=== PATIENT | male | born 1955 | race Two or more races ===

== ENCOUNTER → 2020-08-10 | Outpatient (CLI) | payer OTHER | END | disposition home or self-care (01) | LOC: Rad HDHVI 08:06 | PROVIDERS: ATTEND Internal Medicine Cardiovascular Disease | DX: I11.0 Hypertensive heart disease with heart failure (principal); I50.43 Acute on chronic combined systolic (congestive) and diastolic (congestive) heart failure | CPT/HCPCS: 93306 ==

== ENCOUNTER → 2020-08-17 | Outpatient (CLI) | payer OTHER ==
[~2020-08-17] MED LIST: AMIODARONE HCL 200 MG TAB ONE; AMIODARONE HCL 200 MG TAB PO ONE; FUROSEMIDE 40 MG/4 ML VIAL IV ONE; FUROSEMIDE 40 MG/4 ML VIAL ONE; POTASSIUM CHL 20 Meq TABLET PO ONE
--- NOTE | 2020-08-17 09:10 | NUR ---
PT. BROUGHT TO [facility] [place] [facility] [place] [facility] DEPT[facility] AFTER UNABLE TO COMPLETE STRESS TEST DUE TO SEVERE ORTHOPNEA. PT. AOX4, PWD. EKG DONE IN STRESS LAB SHOWS NEW ONSET A-FIB WITH RVR AT 125-140BPM. B/P. 97/65, O2 IN PLACE AT 3L/NC HL, RT AC, FLUSHED WITH 10CC NSS, SITE BENIGN. ORDERS RECEIVED AND CARRIED OUT.
--- NOTE | 2020-08-17 09:30 | NUR ---
LABS DRAWN AND SENT PER MD ORDER. PT. CHANGED TO SITTING AND STANDING POSITION FOR RESP. COMFORT SATS 98% ON 3L/NC.
--- NOTE | 2020-08-17 09:45 | NUR ---
PT. TO AND FROM XRAY VIA AMBULATION. 97/69, 119-126, 24
--- NOTE | 2020-08-17 10:00 | NUR ---
NEW T.O. RECEIVED FROM DR. KAPLAN WHO WILL BE COMING TO SEE PT.
[2020-08-17 10:11] LABS: BUN/Creatinine Ratio 10.9; Calcium 8.2 mg/dL (8.5-10.1); Magnesium 2.5 mg/dL (1.6-2.6)
--- NOTE | 2020-08-17 10:13 | NUR ---
PT. TOOK HIS OWN DOSE OF XARELTO 20MG PO PER MD ORDER.
[2020-08-17 10:17] LABS: Basophils # (auto) 0.1 10 ^3/uL (0-0.2); Eosinophils # (auto) 0.2 10 ^3/uL (0-0.8); Eosinophils % (auto) 1.7 % (0.0-7.0); Hemoglobin 14.2 g/dL (13.5-17.5); Lymphocytes % (auto) 11.5 % (10.0-50.0); Mean Corpuscular Hemoglobin 31.6 pg (28.0-32.0); Mean Corpuscular Hgb Conc. 33.7 g/dL (32.0-36.0); Mean Corpuscular Volume 93.9 fL (80.0-100.0); Monocytes # (auto) 0.6 10 ^3/uL (0-1.3); Monocytes % (auto) 6.6 % (0.0-12.0); Neutrophils # (auto) 7.1 10 ^3/uL (1.6-8.6); Neutrophils % (auto) 79.2 % (37.0-80.0); Platelet Count (auto) 194 10^3/uL (140-450); Red Blood Cells 4.48 10^6/uL (4.5-5.90); Red Cell Distribution Width 13.7 % (11.8-14.3)
--- NOTE | 2020-08-17 10:50 | NUR ---
MEDS: AMIODARONE 400MG PO GIVEN PER MD ORDER. 114/77, 113-119, 22, 98% ON 3L
--- NOTE | 2020-08-17 11:45 | NUR ---
104/66, 114-116, 22, 99% ON 3L. PT'S HAS BEEN UPDATED ON PT. STATUS AND MD EXAM.PT. WITH NO C/O AT THIS TIME.
--- NOTE | 2020-08-17 12:30 | NUR ---
PT. TO AND FROM DR. KAPLAN' OFFICE FOR EXAM. NEW ORDERS RECEIVED AND CARRIED OUT.
--- NOTE | 2020-08-17 12:55 | NUR ---
MEDS: LASIX 40MG SIVP GIVEN
--- NOTE | 2020-08-17 12:57 | NUR ---
MEDS: PT. MEDICATED WITH KDUR 20 MEQ PO PER MD ORDER.
--- NOTE | 2020-08-17 13:15 | NUR ---
IV removal IV DC'd with sterile technique, catheter fully intact. Pressure dressing applied to site. Patient tolerated procedure well. Discharged with aftercare instructions per MD. NOTE: NEW RX'S CALLED TO [facility]. FOR XARELTO 20MG, AMIODARONE 400MG BID, DIGOXIN 0.125 PO Q HS, LASIX 20MG PO DAILY AND KDUR 10 MEQ PO DAILY. PT. INSTRUCTED TO HOLD HIS PROCARDIA PER MD INSTRUCTIONS.
--- NOTE | 2020-08-17 13:20 | NUR ---
Discharge Instructions See e-MAR for any mediations given with this visit. Patient education given on disease process. Patient verbalized understanding. Previous labs reviewed. Patient discharged in stable condition with after care instructions and follow up appointment. PT. TO HAVE FOLLOW UP APPT ON 08/[address] KAPLAN.
[2020-08-17 15:49] VITALS: BP 106/59
== END | disposition home or self-care (01) ==
LOC: Rad HDHVI 08:05
PROVIDERS: ATTEND Internal Medicine Cardiovascular Disease
DX: I70.0 Atherosclerosis of aorta (principal); R09.89 Other specified symptoms and signs involving the circulatory and respiratory systems; M47.814 Spondylosis without myelopathy or radiculopathy, thoracic region; J90 Pleural effusion, not elsewhere classified; M25.78 Osteophyte, vertebrae; I11.0 Hypertensive heart disease with heart failure; I50.23 Acute on chronic systolic (congestive) heart failure; R06.02 Shortness of breath; E66.9 Obesity, unspecified; I48.91 Unspecified atrial fibrillation
CPT/HCPCS: 36415; 71046; 80048; 83735; 83880; 85025; 93005; 96374; G0463; J1940

== ENCOUNTER → 2020-09-08 | Outpatient (CLI) | payer OTHER ==
[~2020-09-08] MED LIST changes: +AMIO200T33 PO; -AMIODARONE HCL 200 MG TAB ONE; -AMIODARONE HCL 200 MG TAB PO ONE; +DIGO0.12 PO; +FINA5TAB4 PO; +FURO1TAB33 PO; -FUROSEMIDE 40 MG/4 ML VIAL IV ONE; -FUROSEMIDE 40 MG/4 ML VIAL ONE; +LISI40TA11 PO; -POTASSIUM CHL 20 Meq TABLET PO ONE; +RIVA20TA PO; +TAMS0.4C36 PO
[2020-09-08 09:22] VITALS: BP 131/83
[2020-09-08 09:48] VITALS: BP 128/81
--- NOTE | 2020-09-08 09:48 | NUR ---
Pre-Op Discharge Summary: See e-MAR for any medications given for this visit. Pre-op orders received and carried out per MD of EKG, LABS and chest xrays. Patient given a copy of EKG with [facility] for further follow up care. PT. INSTRUCTED TO TAKE DIURETICS AND KDUR BID ON EVEN DAYS, AND REGULAR DOSE ON ODD DAYS UP UNTIL SCHEDULED PROCEDURE D/T INCREASING PERIPHERAL EDEMA AND SOB PER PT.
[2020-09-08 11:57] LABS: Basophils # (auto) 0.1 10 ^3/uL (0-0.2); Basophils % (auto) 1.1 % (0.0-2.0); Eosinophils # (auto) 0.2 10 ^3/uL (0-0.8); Eosinophils % (auto) 2.4 % (0.0-7.0); Hematocrit 41.4 % (41.0-53.0); Lymphocytes # (auto) 1.1 10 ^3/uL (0.4-5.4); Lymphocytes % (auto) 12.5 % (10.0-50.0); Mean Corpuscular Hemoglobin 31.7 pg (28.0-32.0); Mean Corpuscular Hgb Conc. 33.7 g/dL (32.0-36.0); Mean Corpuscular Volume 93.9 fL (80.0-100.0); Monocytes # (auto) 0.5 10 ^3/uL (0-1.3); Monocytes % (auto) 5.7 % (0.0-12.0); Neutrophils # (auto) 6.7 10 ^3/uL (1.6-8.6); Neutrophils % (auto) 78.3 % (37.0-80.0); Nucleated Red Blood Cells % 0.1 %; Platelet Count (auto) 229 10^3/uL (140-450); Red Blood Cells 4.41 10^6/uL (4.5-5.90); Red Cell Distribution Width 14.4 % (11.8-14.3); White Blood Cell 8.6 10^3/uL (4.4-10.8)
[2020-09-08 12:13] LABS: Calcium 8.5 mg/dL (8.5-10.1); Potassium 3.8 mmol/L (3.5-5.1)
[2020-09-08 12:16] LABS: BUN/Creatinine Ratio 8.9; Magnesium 2.6 mg/dL (1.6-2.6)
[2020-09-08 12:23] LABS: INR 1.34 (0.9-1.15); Partial Thromboplastin Time 36.5 sec (23.0-31.2)
== END | disposition home or self-care (01) ==
LOC: Rad HDHVI 09:12
PROVIDERS: ATTEND Internal Medicine Cardiovascular Disease
DX: Z01.812 Encounter for preprocedural laboratory examination (principal); J98.11 Atelectasis; J90 Pleural effusion, not elsewhere classified; I51.7 Cardiomegaly; R09.89 Other specified symptoms and signs involving the circulatory and respiratory systems; J81.1 Chronic pulmonary edema; I70.0 Atherosclerosis of aorta
CPT/HCPCS: 36415; 71046; 80048; 83735; 85025; 85610; 85730; G0463

== ENCOUNTER 2020-09-14 10:43 | Inpatient (IN) | payer OTHER ==
[~2020-09-14] VITALS: Ht 167.6 cm; Wt 118.0 kg
[2020-09-14] MEDS ORDERED: IOHEXOL 350 MG/ML 100ML IJ ONE (12:14)
[2020-09-14] MEDS ORDERED: LIDOCAINE 2%HCL (LOCAL ANESTH.) INJ 20ML MDV ONE (12:14)
[2020-09-14] MEDS ORDERED: fentaNYL CITRATE 100 MCG/2 ML VL ONE (12:43)
[2020-09-14] MEDS ORDERED: SODIUM CHL 0.9% 50 ML ONE ×2 (12:43→13:41)
[2020-09-14] MEDS ORDERED: MIDAZOLAM HCL 1MG/1ML-2 ML VIAL ONE (12:43)
[2020-09-14] MEDS ORDERED: ANGIOMAX 250 MG VIAL IV ONE ×2 (12:43→13:41)
[2020-09-14] MEDS ORDERED: FUROSEMIDE 20 MG/2 ML VIAL ONE (13:03)
[2020-09-14] MEDS ORDERED: NITROGLYCERIN 0.4MG/DOSE SPRAY 4.9GM ONE (13:12)
[2020-09-14] MEDS ORDERED: CLOPIDOGREL 300 MG TAB ONE (13:47)
[2020-09-14] MEDS ORDERED: MORPHINE SULF INJ 2 MG/ML SYRINGE 1ML IV PRN (14:30)
[2020-09-14] MEDS ORDERED: ONDANSETRON HCL 4 MG/2 ML VIAL IV PRN (14:30)
[2020-09-14] MEDS ORDERED: LISINOPRIL 20 MG TAB PO PRN (14:30)
[2020-09-14] MEDS ORDERED: ACETAMINOPHEN 500 MG TAB PO PRN (14:30)
[2020-09-14] MEDS ORDERED: NITROGLYCERIN 0.4 MG SL TAB SL PRN (14:30)
[2020-09-14] MEDS: HYDROcodone-ACET 5/325MG TAB PO PRN (16:15)
[2020-09-14 17:45] VITALS: BP 102/74
[2020-09-14] MEDS ORDERED: TAMSULOSIN HYDROCHLORIDE 0.4 MG CAP PO SCH (18:00)
[2020-09-14 18:45] VITALS: BP 101/61
[2020-09-14 19:45] VITALS: BP_SYST 110; BP_SYST 98; BP_DIAS 62; BP_DIAS 68
[2020-09-14] MEDS: AMIODARONE HCL 200 MG TAB PO SCH (22:36)
[2020-09-15 00:27] VITALS: BP 110/62
[2020-09-15 05:32] VITALS: BP 102/70
[2020-09-15 07:58] LABS: Potassium 3.9 mmol/L (3.5-5.1)
[2020-09-15 08:00] VITALS: BP_SYST 94; BP_SYST 96; BP_DIAS 61; BP_DIAS 67
[2020-09-15] MEDS: HYDROcodone-ACET 5/325MG TAB PO PRN (08:02)
[2020-09-15 08:03] LABS: BUN/Creatinine Ratio 10.3; Calcium 8.4 mg/dL (8.5-10.1)
[2020-09-15] MEDS ORDERED: LISINOPRIL 20 MG TAB PO SCH (10:00)
[2020-09-15] MEDS: AMIODARONE HCL 200 MG TAB PO SCH (10:00)
[2020-09-15] MEDS ORDERED: FUROSEMIDE 20 MG TAB PO SCH (10:00)
[2020-09-15] MEDS ORDERED: FINASTERIDE 5 MG TAB PO SCH (10:00)
[2020-09-15] MEDS ORDERED: CLOPIDOGREL BISULFATE 75 MG TAB PO SCH (10:00)
[2020-09-15] MEDS ORDERED: DIGOXIN 0.125 MG TAB PO SCH (10:00)
[2020-09-15 12:00] VITALS: BP 88/59
[2020-09-15 14:38] VITALS: BP 88/59
[2020-09-15] MEDS ORDERED: RIVAROXABAN 20 MG TAB PO SCH (18:00)
== END 2020-09-15 15:40 | disposition home or self-care (01) | DRG 246 ==
LOC: CATH 10:43 → TELE 10:44 → TELE-WESTW 16:48
PROVIDERS: ADMIT Internal Medicine Cardiovascular Disease; ATTEND Internal Medicine Cardiovascular Disease
PROC: 027037Z Dilation of Coronary Artery, One Artery with Four or More Drug-eluting Intraluminal Devices, Percutaneous Approach (ICD-10-PCS; principal; 2020-09-14)
PROC: 4A023N8 Measurement of Cardiac Sampling and Pressure, Bilateral, Percutaneous Approach (ICD-10-PCS; 2020-09-14)
PROC: B2151ZZ Fluoroscopy of Left Heart using Low Osmolar Contrast (ICD-10-PCS; 2020-09-14)
PROC: B2111ZZ Fluoroscopy of Multiple Coronary Arteries using Low Osmolar Contrast (ICD-10-PCS; 2020-09-14)
DX: I11.0 Hypertensive heart disease with heart failure (principal); I50.21 Acute systolic (congestive) heart failure; Z68.41 Body mass index [BMI] 40.0-44.9, adult; I25.10 Atherosclerotic heart disease of native coronary artery without angina pectoris; I25.5 Ischemic cardiomyopathy; E66.01 Morbid (severe) obesity due to excess calories; E11.9 Type 2 diabetes mellitus without complications; Z20.828 Contact with and (suspected) exposure to other viral communicable diseases
CPT/HCPCS: 36415; 36600; 80048; 82805; 99152; 99153; C1751; C1874; C1887; G0378; J2250

== ENCOUNTER → 2020-10-11 | Outpatient (CLI) | payer OTHER ==
[2020-10-11 09:49] VITALS: BP 142/94
[2020-10-11 10:27] VITALS: BP 124/80
== END | disposition home or self-care (01) ==
LOC: Rad HDHVI 08:11
PROVIDERS: ATTEND Internal Medicine Cardiovascular Disease
DX: I25.118 Atherosclerotic heart disease of native coronary artery with other forms of angina pectoris (principal); I11.0 Hypertensive heart disease with heart failure; I50.23 Acute on chronic systolic (congestive) heart failure; R60.9 Edema, unspecified; I73.9 Peripheral vascular disease, unspecified; E11.9 Type 2 diabetes mellitus without complications; I42.0 Dilated cardiomyopathy; R06.02 Shortness of breath; R09.89 Other specified symptoms and signs involving the circulatory and respiratory systems
CPT/HCPCS: 93306; G0166

== ENCOUNTER → 2020-10-12 | Outpatient (CLI) | payer OTHER ==
[2020-10-12 14:40] VITALS: BP 129/95
[2020-10-12 15:16] VITALS: BP 108/75
== END | disposition home or self-care (01) ==
LOC: CHF HDHVI 14:07
PROVIDERS: ATTEND Internal Medicine Cardiovascular Disease
DX: I25.118 Atherosclerotic heart disease of native coronary artery with other forms of angina pectoris (principal); I11.0 Hypertensive heart disease with heart failure; I50.23 Acute on chronic systolic (congestive) heart failure; I73.9 Peripheral vascular disease, unspecified; R60.9 Edema, unspecified; E11.9 Type 2 diabetes mellitus without complications; R09.89 Other specified symptoms and signs involving the circulatory and respiratory systems; I42.0 Dilated cardiomyopathy; R06.02 Shortness of breath
CPT/HCPCS: G0166

== ENCOUNTER → 2020-10-18 | Outpatient (CLI) | payer OTHER ==
[2020-10-18 14:38] VITALS: BP 135/94
[2020-10-18 15:10] VITALS: BP 129/81
== END | disposition home or self-care (01) ==
LOC: CHF HDHVI 14:09
PROVIDERS: ATTEND Internal Medicine Cardiovascular Disease
DX: I25.118 Atherosclerotic heart disease of native coronary artery with other forms of angina pectoris (principal); I11.0 Hypertensive heart disease with heart failure; I50.23 Acute on chronic systolic (congestive) heart failure; R06.02 Shortness of breath; E11.9 Type 2 diabetes mellitus without complications; R09.89 Other specified symptoms and signs involving the circulatory and respiratory systems; I42.0 Dilated cardiomyopathy; I73.9 Peripheral vascular disease, unspecified; R60.9 Edema, unspecified; Z98.61 Coronary angioplasty status
CPT/HCPCS: G0166

== ENCOUNTER → 2020-10-19 | Outpatient (CLI) | payer OTHER ==
[2020-10-19 14:34] VITALS: BP 128/94
[2020-10-19 15:09] VITALS: BP 130/79
== END | disposition home or self-care (01) ==
LOC: CHF HDHVI 13:56
PROVIDERS: ATTEND Internal Medicine Cardiovascular Disease
DX: I25.118 Atherosclerotic heart disease of native coronary artery with other forms of angina pectoris (principal); I11.0 Hypertensive heart disease with heart failure; I50.23 Acute on chronic systolic (congestive) heart failure; E11.9 Type 2 diabetes mellitus without complications; R06.02 Shortness of breath; I73.9 Peripheral vascular disease, unspecified; I42.0 Dilated cardiomyopathy; R09.89 Other specified symptoms and signs involving the circulatory and respiratory systems; R60.9 Edema, unspecified; Z98.61 Coronary angioplasty status
CPT/HCPCS: G0166

== ENCOUNTER → 2020-10-20 | Outpatient (CLI) | payer OTHER ==
[2020-10-20 14:28] VITALS: BP 141/85
[2020-10-20 15:01] VITALS: BP 124/74
== END | disposition home or self-care (01) ==
LOC: CHF HDHVI 13:56
PROVIDERS: ATTEND Internal Medicine Cardiovascular Disease
DX: I25.118 Atherosclerotic heart disease of native coronary artery with other forms of angina pectoris (principal); I11.0 Hypertensive heart disease with heart failure; I50.23 Acute on chronic systolic (congestive) heart failure; I73.9 Peripheral vascular disease, unspecified; I42.0 Dilated cardiomyopathy; R06.02 Shortness of breath; E11.9 Type 2 diabetes mellitus without complications; R09.89 Other specified symptoms and signs involving the circulatory and respiratory systems; R60.9 Edema, unspecified
CPT/HCPCS: G0166

== ENCOUNTER → 2020-10-26 | Outpatient (CLI) | payer OTHER ==
[2020-10-26 14:28] VITALS: BP 140/86
[2020-10-26 15:01] VITALS: BP 120/69
== END | disposition home or self-care (01) ==
LOC: CHF HDHVI 13:57
PROVIDERS: ATTEND Internal Medicine Cardiovascular Disease
DX: I25.118 Atherosclerotic heart disease of native coronary artery with other forms of angina pectoris (principal); I11.0 Hypertensive heart disease with heart failure; I50.23 Acute on chronic systolic (congestive) heart failure; E11.9 Type 2 diabetes mellitus without complications; I73.9 Peripheral vascular disease, unspecified; R06.02 Shortness of breath; I42.0 Dilated cardiomyopathy; R60.9 Edema, unspecified
CPT/HCPCS: G0166

== ENCOUNTER → 2020-10-27 | Outpatient (CLI) | payer OTHER ==
[2020-10-27 14:30] VITALS: BP 139/79
[2020-10-27 15:05] VITALS: BP 126/77
== END | disposition home or self-care (01) ==
LOC: CHF HDHVI 13:56
PROVIDERS: ATTEND Internal Medicine Cardiovascular Disease
DX: I25.118 Atherosclerotic heart disease of native coronary artery with other forms of angina pectoris (principal); I11.0 Hypertensive heart disease with heart failure; I50.23 Acute on chronic systolic (congestive) heart failure; I42.0 Dilated cardiomyopathy; I73.9 Peripheral vascular disease, unspecified; R06.02 Shortness of breath; R60.9 Edema, unspecified; E11.9 Type 2 diabetes mellitus without complications; R09.89 Other specified symptoms and signs involving the circulatory and respiratory systems
CPT/HCPCS: G0166

== ENCOUNTER → 2020-10-28 | Outpatient (CLI) | payer OTHER ==
[2020-10-28 09:51] VITALS: BP 133/79
[2020-10-28 10:24] VITALS: BP 132/76
== END | disposition home or self-care (01) ==
LOC: CHF HDHVI 09:13
PROVIDERS: ATTEND Internal Medicine Cardiovascular Disease
DX: I25.118 Atherosclerotic heart disease of native coronary artery with other forms of angina pectoris (principal); I11.0 Hypertensive heart disease with heart failure; I50.23 Acute on chronic systolic (congestive) heart failure; R60.9 Edema, unspecified; R06.02 Shortness of breath; I73.9 Peripheral vascular disease, unspecified; E11.9 Type 2 diabetes mellitus without complications; I42.0 Dilated cardiomyopathy; R09.89 Other specified symptoms and signs involving the circulatory and respiratory systems; Z98.61 Coronary angioplasty status
CPT/HCPCS: G0166

== ENCOUNTER → 2020-11-04 | Outpatient (CLI) | payer OTHER ==
[2020-11-04 14:31] VITALS: BP 133/83
[2020-11-04 15:04] VITALS: BP 134/84
== END | disposition home or self-care (01) ==
LOC: CHF HDHVI 14:00
PROVIDERS: ATTEND Internal Medicine Cardiovascular Disease
DX: I25.118 Atherosclerotic heart disease of native coronary artery with other forms of angina pectoris (principal); I11.0 Hypertensive heart disease with heart failure; I50.23 Acute on chronic systolic (congestive) heart failure; E11.9 Type 2 diabetes mellitus without complications; R06.02 Shortness of breath; I42.0 Dilated cardiomyopathy; Z98.61 Coronary angioplasty status
CPT/HCPCS: G0166

== ENCOUNTER → 2020-11-05 | Outpatient (CLI) | payer OTHER ==
[2020-11-05 14:30] VITALS: BP 132/83
[2020-11-05 15:22] VITALS: BP 129/71
== END | disposition home or self-care (01) ==
LOC: CHF HDHVI 13:59
PROVIDERS: ATTEND Internal Medicine Cardiovascular Disease
DX: I25.118 Atherosclerotic heart disease of native coronary artery with other forms of angina pectoris (principal); I11.0 Hypertensive heart disease with heart failure; I50.23 Acute on chronic systolic (congestive) heart failure; I73.9 Peripheral vascular disease, unspecified; I42.0 Dilated cardiomyopathy; E11.9 Type 2 diabetes mellitus without complications; R06.02 Shortness of breath; Z98.61 Coronary angioplasty status
CPT/HCPCS: G0166

== ENCOUNTER → 2020-11-08 | Outpatient (CLI) | payer OTHER ==
[2020-11-08 14:39] VITALS: BP 113/75
[2020-11-08 15:07] VITALS: BP 123/78
== END | disposition home or self-care (01) ==
LOC: CHF HDHVI 14:07
PROVIDERS: ATTEND Internal Medicine Cardiovascular Disease
DX: I25.118 Atherosclerotic heart disease of native coronary artery with other forms of angina pectoris (principal); I11.0 Hypertensive heart disease with heart failure; I50.23 Acute on chronic systolic (congestive) heart failure; I42.0 Dilated cardiomyopathy; I73.9 Peripheral vascular disease, unspecified; E11.9 Type 2 diabetes mellitus without complications; R06.02 Shortness of breath; R09.89 Other specified symptoms and signs involving the circulatory and respiratory systems; R60.9 Edema, unspecified
CPT/HCPCS: G0166

== ENCOUNTER → 2020-11-09 | Outpatient (CLI) | payer OTHER ==
[~2020-11-09] MED LIST changes: +ALBUAER3 INH; +ATOR20TA50 PO; +CLOP75TA70 PO; +POTA-180 PO
[2020-11-09 14:31] VITALS: BP 159/96
[2020-11-09 15:14] VITALS: BP 132/76
== END | disposition home or self-care (01) ==
LOC: CHF HDHVI 13:52
PROVIDERS: ATTEND Internal Medicine Cardiovascular Disease
DX: I25.118 Atherosclerotic heart disease of native coronary artery with other forms of angina pectoris (principal); I11.0 Hypertensive heart disease with heart failure; I50.23 Acute on chronic systolic (congestive) heart failure; E11.9 Type 2 diabetes mellitus without complications; R06.02 Shortness of breath; I73.9 Peripheral vascular disease, unspecified; Z98.61 Coronary angioplasty status
CPT/HCPCS: G0166

== ENCOUNTER → 2020-11-15 | Outpatient (CLI) | payer OTHER ==
[~2020-11-15] MED LIST changes: -ALBUAER3 INH; -ATOR20TA50 PO; -CLOP75TA70 PO; -POTA-180 PO
[2020-11-15 14:31] VITALS: BP 157/89
[2020-11-15 15:22] VITALS: BP 126/72
== END | disposition home or self-care (01) ==
LOC: CHF HDHVI 13:56
PROVIDERS: ATTEND Internal Medicine Cardiovascular Disease
DX: I25.118 Atherosclerotic heart disease of native coronary artery with other forms of angina pectoris (principal); I11.0 Hypertensive heart disease with heart failure; I50.23 Acute on chronic systolic (congestive) heart failure; E11.9 Type 2 diabetes mellitus without complications; R06.02 Shortness of breath; I42.0 Dilated cardiomyopathy; I73.9 Peripheral vascular disease, unspecified; Z98.61 Coronary angioplasty status
CPT/HCPCS: G0166

== ENCOUNTER → 2020-11-16 | Outpatient (CLI) | payer OTHER ==
[2020-11-16 14:45] VITALS: BP 129/79
[2020-11-16 15:14] VITALS: BP 124/72
== END | disposition home or self-care (01) ==
LOC: CHF HDHVI 14:13
PROVIDERS: ATTEND Internal Medicine Cardiovascular Disease
DX: I25.118 Atherosclerotic heart disease of native coronary artery with other forms of angina pectoris (principal); I11.0 Hypertensive heart disease with heart failure; I50.23 Acute on chronic systolic (congestive) heart failure; E11.9 Type 2 diabetes mellitus without complications; R06.02 Shortness of breath; I73.9 Peripheral vascular disease, unspecified; Z98.61 Coronary angioplasty status
CPT/HCPCS: G0166

== ENCOUNTER → 2020-11-17 | Outpatient (CLI) | payer OTHER ==
[2020-11-17 14:32] VITALS: BP 128/76
[2020-11-17 15:06] VITALS: BP 114/65
== END | disposition home or self-care (01) ==
LOC: CHF HDHVI 14:00
PROVIDERS: ATTEND Internal Medicine Cardiovascular Disease
DX: I25.118 Atherosclerotic heart disease of native coronary artery with other forms of angina pectoris (principal); I11.0 Hypertensive heart disease with heart failure; I50.23 Acute on chronic systolic (congestive) heart failure; I73.9 Peripheral vascular disease, unspecified; I42.0 Dilated cardiomyopathy; R06.02 Shortness of breath; E11.9 Type 2 diabetes mellitus without complications; Z98.61 Coronary angioplasty status
CPT/HCPCS: G0166

== ENCOUNTER → 2020-11-24 | Outpatient (CLI) | payer OTHER ==
[2020-11-24 14:45] VITALS: BP 141/81
[2020-11-24 15:17] VITALS: BP 127/77
== END | disposition home or self-care (01) ==
LOC: CHF HDHVI 14:12
PROVIDERS: ATTEND Internal Medicine Cardiovascular Disease
DX: I25.118 Atherosclerotic heart disease of native coronary artery with other forms of angina pectoris (principal); I11.0 Hypertensive heart disease with heart failure; I50.23 Acute on chronic systolic (congestive) heart failure; I73.9 Peripheral vascular disease, unspecified; E11.9 Type 2 diabetes mellitus without complications; R06.02 Shortness of breath; R60.9 Edema, unspecified; R09.89 Other specified symptoms and signs involving the circulatory and respiratory systems; I42.0 Dilated cardiomyopathy
CPT/HCPCS: G0166

== ENCOUNTER → 2020-11-25 | Outpatient (CLI) | payer OTHER ==
[2020-11-25 14:28] VITALS: BP 144/82
[2020-11-25 15:05] VITALS: BP 119/70
== END | disposition home or self-care (01) ==
LOC: CHF HDHVI 14:14
PROVIDERS: ATTEND Internal Medicine Cardiovascular Disease
DX: I25.118 Atherosclerotic heart disease of native coronary artery with other forms of angina pectoris (principal); I11.0 Hypertensive heart disease with heart failure; I50.23 Acute on chronic systolic (congestive) heart failure; R06.02 Shortness of breath; I73.9 Peripheral vascular disease, unspecified; I42.0 Dilated cardiomyopathy; E11.9 Type 2 diabetes mellitus without complications; Z98.61 Coronary angioplasty status
CPT/HCPCS: G0166

== ENCOUNTER → 2020-11-26 | Outpatient (CLI) | payer OTHER ==
[2020-11-26 14:31] VITALS: BP 156/89
[2020-11-26 15:07] VITALS: BP 131/75
== END | disposition home or self-care (01) ==
LOC: CHF HDHVI 13:52
PROVIDERS: ATTEND Internal Medicine Cardiovascular Disease
DX: I25.118 Atherosclerotic heart disease of native coronary artery with other forms of angina pectoris (principal); I11.0 Hypertensive heart disease with heart failure; I50.23 Acute on chronic systolic (congestive) heart failure; R06.02 Shortness of breath; E11.9 Type 2 diabetes mellitus without complications; I42.0 Dilated cardiomyopathy; Z98.61 Coronary angioplasty status
CPT/HCPCS: G0166

== ENCOUNTER → 2020-11-29 | Outpatient (CLI) | payer OTHER ==
[2020-11-29 14:34] VITALS: BP 143/89
[2020-11-29 15:07] VITALS: BP 127/75
== END | disposition home or self-care (01) ==
LOC: CHF HDHVI 14:12
PROVIDERS: ATTEND Internal Medicine Cardiovascular Disease
DX: I25.118 Atherosclerotic heart disease of native coronary artery with other forms of angina pectoris (principal); I11.0 Hypertensive heart disease with heart failure; I50.23 Acute on chronic systolic (congestive) heart failure; I73.9 Peripheral vascular disease, unspecified; I42.0 Dilated cardiomyopathy; E11.9 Type 2 diabetes mellitus without complications; Z98.61 Coronary angioplasty status
CPT/HCPCS: G0166

== ENCOUNTER → 2020-12-01 | Outpatient (CLI) | payer OTHER ==
[2020-12-01 14:33] VITALS: BP 136/67
[2020-12-01 15:04] VITALS: BP 125/71
== END | disposition home or self-care (01) ==
LOC: CHF HDHVI 13:54
PROVIDERS: ATTEND Internal Medicine Cardiovascular Disease
DX: I25.118 Atherosclerotic heart disease of native coronary artery with other forms of angina pectoris (principal); I11.0 Hypertensive heart disease with heart failure; I50.23 Acute on chronic systolic (congestive) heart failure; I25.5 Ischemic cardiomyopathy; I42.0 Dilated cardiomyopathy; E11.9 Type 2 diabetes mellitus without complications; R06.02 Shortness of breath; Z98.61 Coronary angioplasty status
CPT/HCPCS: G0166

== ENCOUNTER → 2020-12-02 | Outpatient (CLI) | payer OTHER ==
[2020-12-02 15:22] VITALS: BP 136/79
[2020-12-02 15:31] VITALS: BP 127/75
== END | disposition home or self-care (01) ==
LOC: CHF HDHVI 14:22
PROVIDERS: ATTEND Internal Medicine Cardiovascular Disease
DX: I25.118 Atherosclerotic heart disease of native coronary artery with other forms of angina pectoris (principal); I11.0 Hypertensive heart disease with heart failure; I50.23 Acute on chronic systolic (congestive) heart failure; E11.9 Type 2 diabetes mellitus without complications; R06.02 Shortness of breath; I42.0 Dilated cardiomyopathy; I73.9 Peripheral vascular disease, unspecified; Z98.61 Coronary angioplasty status
CPT/HCPCS: G0166

== ENCOUNTER → 2020-12-08 | Outpatient (CLI) | payer OTHER ==
[2020-12-08 14:28] VITALS: BP 141/85
[2020-12-08 15:03] VITALS: BP 138/78
== END | disposition home or self-care (01) ==
LOC: CHF HDHVI 14:13
PROVIDERS: ATTEND Internal Medicine Cardiovascular Disease
DX: I25.118 Atherosclerotic heart disease of native coronary artery with other forms of angina pectoris (principal); I11.0 Hypertensive heart disease with heart failure; I50.23 Acute on chronic systolic (congestive) heart failure; I73.9 Peripheral vascular disease, unspecified; I42.0 Dilated cardiomyopathy; E11.9 Type 2 diabetes mellitus without complications; R60.9 Edema, unspecified; R06.02 Shortness of breath; R09.89 Other specified symptoms and signs involving the circulatory and respiratory systems
CPT/HCPCS: G0166

== ENCOUNTER → 2020-12-13 | Outpatient (CLI) | payer OTHER ==
[2020-12-13 14:30] VITALS: BP 136/77
[2020-12-13 15:04] VITALS: BP 123/68
== END | disposition home or self-care (01) ==
LOC: CHF HDHVI 14:05
PROVIDERS: ATTEND Internal Medicine Cardiovascular Disease
DX: I25.118 Atherosclerotic heart disease of native coronary artery with other forms of angina pectoris (principal); I11.0 Hypertensive heart disease with heart failure; I50.23 Acute on chronic systolic (congestive) heart failure; I73.9 Peripheral vascular disease, unspecified; I42.0 Dilated cardiomyopathy; E11.9 Type 2 diabetes mellitus without complications; R06.02 Shortness of breath; Z98.61 Coronary angioplasty status
CPT/HCPCS: G0166

== ENCOUNTER → 2020-12-22 | Outpatient (CLI) | payer OTHER | END | disposition home or self-care (01) | LOC: Rad HDHVI 13:50 | PROVIDERS: ATTEND Internal Medicine Cardiovascular Disease | DX: I25.5 Ischemic cardiomyopathy (principal); R06.02 Shortness of breath | CPT/HCPCS: 93306 ==

== ENCOUNTER → 2021-01-31 | Outpatient (CLI) | payer OTHER ==
[~2021-01-31] MED LIST changes: +ALBUAER3 INH; +ATOR20TA50 PO; +CLOP75TA70 PO; +POTA-180 PO
[2021-01-31 09:10] VITALS: BP 123/66
[2021-01-31 09:25] VITALS: BP 118/69
[2021-01-31 12:08] LABS: Basophils # (auto) 0 10 ^3/uL (0-0.2); Basophils % (auto) 0.5 % (0.0-2.0); Eosinophils # (auto) 0 10 ^3/uL (0-0.8); Eosinophils % (auto) 0.3 % (0.0-7.0); Hematocrit 36.6 % (41.0-53.0); Hemoglobin 12.3 g/dL (13.5-17.5); Lymphocytes # (auto) 0.5 10 ^3/uL (0.4-5.4); Lymphocytes % (auto) 5.2 % (10.0-50.0); Mean Corpuscular Hemoglobin 29.1 pg (28.0-32.0); Mean Corpuscular Hgb Conc. 33.6 g/dL (32.0-36.0); Mean Corpuscular Volume 86.4 fL (80.0-100.0); Monocytes # (auto) 0.9 10 ^3/uL (0-1.3); Monocytes % (auto) 9.6 % (0.0-12.0); Neutrophils # (auto) 7.7 10 ^3/uL (1.6-8.6); Neutrophils % (auto) 84.4 % (37.0-80.0); Platelet Count (auto) 191 10^3/uL (140-450); Red Blood Cells 4.23 10^6/uL (4.5-5.90); White Blood Cell 9.1 10^3/uL (4.4-10.8)
[2021-01-31 12:18] LABS: INR 1.08 (0.9-1.15); Partial Thromboplastin Time 28.4 sec (23.0-31.2)
[2021-01-31 12:26] LABS: Red Cell Distribution Width 21.3 % (11.8-14.3)
[2021-01-31 13:15] LABS: BUN/Creatinine Ratio 12.4; Calcium 8.7 mg/dL (8.5-10.1); Potassium 3.6 mmol/L (3.5-5.1)
== END | disposition home or self-care (01) ==
LOC: Rad HDHVI 08:51
PROVIDERS: ATTEND Internal Medicine Cardiovascular Disease
DX: Z01.812 Encounter for preprocedural laboratory examination (principal); I51.7 Cardiomegaly; I70.0 Atherosclerosis of aorta; J90 Pleural effusion, not elsewhere classified; R06.02 Shortness of breath; I25.5 Ischemic cardiomyopathy; R07.9 Chest pain, unspecified; I50.9 Heart failure, unspecified; R09.89 Other specified symptoms and signs involving the circulatory and respiratory systems
CPT/HCPCS: 36415; 71046; 80048; 85025; 85610; 85730; 93005; G0463

== ENCOUNTER 2021-02-03 06:52 | Day surgery (SDC) | payer OTHER ==
[~2021-02-03] VITALS: Ht 167.6 cm; Wt 98.4 kg
[~2021-02-03 06:52] MED LIST changes: -LISI40TA11 PO
[2021-02-03] MEDS ORDERED: VANCOMYCIN 1GM/250ML 250 ML IV ONE (08:15)
[2021-02-03] MEDS ORDERED: VANCOMYCIN HCL 1000 MG VL ONE (09:35)
[2021-02-03] MEDS ORDERED: MIDAZOLAM HCL 1MG/1ML-2 ML VIAL ONE (09:35)
[2021-02-03] MEDS ORDERED: fentaNYL CITRATE 100 MCG/2 ML VL ONE (09:35)
[2021-02-03] MEDS ORDERED: LIDOCAINE 2%HCL (LOCAL ANESTH.) INJ 20ML MDV ONE (09:46)
[2021-02-03] MEDS ORDERED: ceFAZolin 1GM 2 GM in D5W 5% 100 ML IV ONE (11:00)
[2021-02-03] MEDS ORDERED: HYDROcodone-ACET 5/325MG TAB PO PRN (11:00)
== END 2021-02-03 13:48 | disposition home or self-care (01) ==
LOC: CATH 06:52
PROVIDERS: ATTEND Internal Medicine Cardiovascular Disease
DX: Z45.02 Encounter for adjustment and management of automatic implantable cardiac defibrillator (principal); I42.8 Other cardiomyopathies; J44.9 Chronic obstructive pulmonary disease, unspecified; E66.9 Obesity, unspecified; I11.0 Hypertensive heart disease with heart failure; E78.00 Pure hypercholesterolemia, unspecified; I49.9 Cardiac arrhythmia, unspecified; Z20.822 Contact with and (suspected) exposure to COVID-19; Z98.890 Other specified postprocedural states; Z68.35 Body mass index [BMI] 35.0-35.9, adult; Z95.5 Presence of coronary angioplasty implant and graft; Z87.891 Personal history of nicotine dependence; Z79.899 Other long term (current) drug therapy
CPT/HCPCS: 33249; 71045; 93005; J0690; J2250; J3010; J3370; J7030; J7060; U0003; 99152; 99153

== ENCOUNTER → 2021-02-04 | Outpatient (CLI) | payer OTHER | END | disposition home or self-care (01) | LOC: Rad HDHVI 08:25 | PROVIDERS: ATTEND Internal Medicine Cardiovascular Disease | DX: J90 Pleural effusion, not elsewhere classified (principal); R60.0 Localized edema; I51.7 Cardiomegaly; J98.4 Other disorders of lung; Z95.810 Presence of automatic (implantable) cardiac defibrillator; T81.9XXA Unspecified complication of procedure, initial encounter | CPT/HCPCS: 71046 ==

== ENCOUNTER → 2021-02-11 | Outpatient (CLI) | payer OTHER ==
[~2021-02-11] MED LIST changes: +BACITRACIN TOP OINT 1 UD PKG TOP ONE; +FUROSEMIDE 100 MG/10ML VIAL IV ONE; +FUROSEMIDE 40 MG/4 ML VIAL ONE; +FUROSEMIDE INJECTION 10 ML ONE; +POTASSIUM CHL 10 Meq TABLET PO ONE; +POTASSIUM CHL 20 Meq TABLET PO ONE
[2021-02-11 12:45] VITALS: BP 100/55
[2021-02-11 14:02] VITALS: BP 118/69
== END | disposition home or self-care (01) ==
LOC: CHF HDHVI 12:55
PROVIDERS: ATTEND Internal Medicine Cardiovascular Disease
DX: I11.0 Hypertensive heart disease with heart failure (principal); I50.9 Heart failure, unspecified; J44.9 Chronic obstructive pulmonary disease, unspecified; E78.00 Pure hypercholesterolemia, unspecified; I25.10 Atherosclerotic heart disease of native coronary artery without angina pectoris; I48.91 Unspecified atrial fibrillation; Z95.810 Presence of automatic (implantable) cardiac defibrillator; Z79.899 Other long term (current) drug therapy; Z87.891 Personal history of nicotine dependence
CPT/HCPCS: 96374; G0463; J1940

== ENCOUNTER → 2021-02-15 | Outpatient (CLI) | payer OTHER ==
[~2021-02-15] MED LIST changes: -FUROSEMIDE 100 MG/10ML VIAL IV ONE; -FUROSEMIDE 40 MG/4 ML VIAL ONE; -FUROSEMIDE INJECTION 10 ML ONE; -POTASSIUM CHL 10 Meq TABLET PO ONE; -POTASSIUM CHL 20 Meq TABLET PO ONE
[2021-02-15 09:57] VITALS: BP 92/59
[2021-02-15 10:28] VITALS: BP 91/57
== END | disposition home or self-care (01) ==
LOC: CHF HDHVI 09:54
PROVIDERS: ATTEND Internal Medicine Cardiovascular Disease
DX: Z48.01 Encounter for change or removal of surgical wound dressing (principal); Z95.810 Presence of automatic (implantable) cardiac defibrillator
CPT/HCPCS: G0463

== ENCOUNTER → 2021-02-21 | Outpatient (CLI) | payer OTHER ==
[~2021-02-21] MED LIST changes: -BACITRACIN TOP OINT 1 UD PKG TOP ONE
[2021-02-21 09:34] VITALS: BP 102/61
[2021-02-21 09:53] VITALS: BP 98/60
[2021-02-21 12:04] LABS: Basophils # (auto) 0 10 ^3/uL (0-0.2); Basophils % (auto) 0.3 % (0.0-2.0); Eosinophils # (auto) 0 10 ^3/uL (0-0.8); Eosinophils % (auto) 0.2 % (0.0-7.0); Hemoglobin 13.3 g/dL (13.5-17.5); Lymphocytes # (auto) 0.5 10 ^3/uL (0.4-5.4); Lymphocytes % (auto) 3.5 % (10.0-50.0); Mean Corpuscular Hemoglobin 29.5 pg (28.0-32.0); Mean Corpuscular Hgb Conc. 33.3 g/dL (32.0-36.0); Mean Corpuscular Volume 88.6 fL (80.0-100.0); Monocytes % (auto) 7.7 % (0.0-12.0); Neutrophils # (auto) 11.3 10 ^3/uL (1.6-8.6); Neutrophils % (auto) 88.3 % (37.0-80.0); Nucleated Red Blood Cells % 0.1 %; Platelet Count (auto) 314 10^3/uL (140-450); Red Blood Cells 4.51 10^6/uL (4.5-5.90); Red Cell Distribution Width 20.5 % (11.8-14.3); White Blood Cell 12.8 10^3/uL (4.4-10.8)
[2021-02-21 12:11] LABS: Potassium 3.8 mmol/L (3.5-5.1)
[2021-02-21 12:21] LABS: BUN/Creatinine Ratio 26.3; Calcium 8.2 mg/dL (8.5-10.1)
[2021-02-21 12:37] LABS: INR 1.04 (0.9-1.15); Partial Thromboplastin Time 27.9 sec (23.0-31.2)
== END | disposition home or self-care (01) ==
LOC: Rad HDHVI 09:34
PROVIDERS: ATTEND Internal Medicine Cardiovascular Disease
DX: Z01.812 Encounter for preprocedural laboratory examination (principal)
CPT/HCPCS: 36415; 80048; 85025; 85610; 85730; G0463

== ENCOUNTER 2021-02-24 06:49 | Inpatient (IN) | payer OTHER ==
[~2021-02-24] VITALS: Ht 167.6 cm; Wt 80.0 kg
[2021-02-24] MEDS ORDERED: MIDAZOLAM HCL 1MG/1ML-2 ML VIAL ONE (08:40)
[2021-02-24] MEDS ORDERED: ANGIOMAX 250 MG VIAL IV ONE (08:40)
[2021-02-24] MEDS ORDERED: fentaNYL CITRATE 100 MCG/2 ML VL ONE (08:40)
[2021-02-24] MEDS ORDERED: LIDOCAINE 2%HCL (LOCAL ANESTH.) INJ 20ML MDV ONE (08:40)
[2021-02-24] MEDS ORDERED: SODIUM CHL 0.9% 0 ML ONE (08:40)
[2021-02-24] MEDS ORDERED: IOHEXOL 350 MG/ML 100ML IJ ONE ×2 (08:41→09:30)
[2021-02-24] MEDS ORDERED: ENOXAPARIN SOD 30 MG/0.3 ML SYRINGE ONE (09:42)
[2021-02-24] MEDS ORDERED: POTASSIUM CHL 20 Meq TABLET PO ONE (10:30)
[2021-02-24] MEDS ORDERED: HYDROcodone-ACET 5/325MG TAB PO PRN (11:00)
[2021-02-24] MEDS ORDERED: ONDANSETRON HCL 4 MG/2 ML VIAL IV PRN (11:00)
[2021-02-24] MEDS ORDERED: ACETAMINOPHEN 500 MG TAB PO PRN (11:00)
[2021-02-24] MEDS ORDERED: NITROGLYCERIN 0.4 MG SL TAB SL PRN (11:00)
[2021-02-24] MEDS ORDERED: MORPHINE SULF INJ 2 MG/ML SYRINGE 1ML IV PRN (11:00)
[2021-02-24 16:56] VITALS: BP 104/65
[2021-02-24] MEDS: TAMSULOSIN HYDROCHLORIDE 0.4 MG CAP PO SCH (17:45)
[2021-02-24] MEDS: FUROSEMIDE 40 MG TAB PO SCH (17:46)
[2021-02-24] MEDS ORDERED: FUROSEMIDE 40 MG/4 ML VIAL IV ONE (21:30)
[2021-02-24 22:00] VITALS: BP 99/61
[2021-02-24] MEDS: ATORVASTATIN 20 MG TAB PO SCH (22:36)
[2021-02-24] MEDS: AMIODARONE HCL 200 MG TAB PO SCH (22:37)
[2021-02-25 00:36] VITALS: BP 103/65
[2021-02-25 04:59] VITALS: BP 112/71
[2021-02-25] MEDS: FUROSEMIDE 40 MG TAB PO SCH ×2 (06:23→17:36)
[2021-02-25] MEDS: DIGOXIN 0.125 MG TAB PO SCH (06:24)
[2021-02-25] MEDS: POTASSIUM CHL 20 Meq TABLET PO SCH (06:25)
[2021-02-25] MEDS: FINASTERIDE 5 MG TAB PO SCH (06:26)
[2021-02-25] MEDS ORDERED: CLOPIDOGREL BISULFATE 75 MG TAB PO SCH (07:00)
[2021-02-25 08:51] VITALS: BP 102/62
[2021-02-25] MEDS: AMIODARONE HCL 200 MG TAB PO SCH ×2 (10:05→22:25)
[2021-02-25 13:00] VITALS: BP 105/61
[2021-02-25 17:00] VITALS: BP 103/68
[2021-02-25] MEDS: TAMSULOSIN HYDROCHLORIDE 0.4 MG CAP PO SCH (17:36)
[2021-02-25] MEDS ORDERED: RIVAROXABAN 20 MG TAB PO SCH (18:00)
[2021-02-25 22:00] VITALS: BP 101/69
[2021-02-25] MEDS: ATORVASTATIN 20 MG TAB PO SCH (22:10)
[2021-02-26 05:00] VITALS: BP 123/69
[2021-02-26] MEDS: FUROSEMIDE 40 MG TAB PO SCH ×2 (06:06→17:43)
[2021-02-26] MEDS: POTASSIUM CHL 20 Meq TABLET PO SCH (06:06)
[2021-02-26] MEDS: DIGOXIN 0.125 MG TAB PO SCH (06:07)
[2021-02-26] MEDS: FINASTERIDE 5 MG TAB PO SCH (06:07)
[2021-02-26 08:33] VITALS: BP 103/59
[2021-02-26] MEDS: AMIODARONE HCL 200 MG TAB PO SCH (09:14)
[2021-02-26 12:34] VITALS: BP 97/64
[2021-02-26] MEDS ORDERED: HEPARIN SODIUM (PORCINE) 5000 UNITS/ML 1ML VIAL IV ONE ×2 (14:45→17:45)
[2021-02-26] MEDS ORDERED: HEPARIN DRIP/D5W 100UNITS/ML 250 ML IV SCH (14:45)
[2021-02-26 14:59] LABS: Basophils # (auto) 0 10 ^3/uL (0-0.2); Eosinophils # (auto) 0 10 ^3/uL (0-0.8); Eosinophils % (auto) 0.1 % (0.0-7.0); Hematocrit 35.5 % (41.0-53.0); Hemoglobin 11.7 g/dL (13.5-17.5); Lymphocytes # (auto) 0.3 10 ^3/uL (0.4-5.4); Lymphocytes % (auto) 2.3 % (10.0-50.0); Mean Corpuscular Hemoglobin 29.6 pg (28.0-32.0); Mean Corpuscular Hgb Conc. 33.1 g/dL (32.0-36.0); Mean Corpuscular Volume 89.7 fL (80.0-100.0); Monocytes # (auto) 0.8 10 ^3/uL (0-1.3); Monocytes % (auto) 5.6 % (0.0-12.0); Neutrophils # (auto) 12.4 10 ^3/uL (1.6-8.6); Platelet Count (auto) 255 10^3/uL (140-450); Red Blood Cells 3.96 10^6/uL (4.5-5.90); White Blood Cell 13.5 10^3/uL (4.4-10.8)
[2021-02-26 15:16] LABS: BUN/Creatinine Ratio 30.9; Calcium 7.9 mg/dL (8.5-10.1); Potassium 4.1 mmol/L (3.5-5.1)
[2021-02-26 15:27] LABS: INR 1.16 (0.9-1.15); Partial Thromboplastin Time 33.7 sec (23.0-31.2)
[2021-02-26 16:27] VITALS: BP 102/67
[2021-02-26 16:54] VITALS: BP 102/67
[2021-02-26] MEDS: TAMSULOSIN HYDROCHLORIDE 0.4 MG CAP PO SCH (17:44)
== END 2021-02-26 20:26 | disposition short-term general hospital (02) | DRG 287 ==
LOC: CATH 06:49 → TELE 10:59 → TELE-WESTW 12:57
PROVIDERS: ADMIT Internal Medicine Cardiovascular Disease; ATTEND Internal Medicine Cardiovascular Disease
PROC: 4A023N8 Measurement of Cardiac Sampling and Pressure, Bilateral, Percutaneous Approach (ICD-10-PCS; principal; 2021-02-24)
PROC: B2111ZZ Fluoroscopy of Multiple Coronary Arteries using Low Osmolar Contrast (ICD-10-PCS; 2021-02-24)
PROC: B2151ZZ Fluoroscopy of Left Heart using Low Osmolar Contrast (ICD-10-PCS; 2021-02-24)
PROC: B41J1ZZ Fluoroscopy of Other Lower Arteries using Low Osmolar Contrast (ICD-10-PCS; 2021-02-24)
DX: I47.2 Ventricular tachycardia (principal); D68.59 Other primary thrombophilia; I50.20 Unspecified systolic (congestive) heart failure; I25.10 Atherosclerotic heart disease of native coronary artery without angina pectoris; I25.5 Ischemic cardiomyopathy; I35.0 Nonrheumatic aortic (valve) stenosis; I48.91 Unspecified atrial fibrillation; N40.0 Benign prostatic hyperplasia without lower urinary tract symptoms; Z79.01 Long term (current) use of anticoagulants; Z95.810 Presence of automatic (implantable) cardiac defibrillator
CPT/HCPCS: 36415; 80048; 85025; 85610; 85730; 87081; 99152; 99153; C1751; G0378; J2250